=== PATIENT | female | born 1970 | race Caucasian/White ===

== ENCOUNTER → 2019-09-28 | Outpatient (CLI) | payer BC ==
[~2019-09-28] MED LIST: CETI10TA17 PO; DCS100C PO; FLUO10CA19 PO; FRS325T PO; IBP600T1 PO; MNTL10T PO; OXYC-12 PO; SLMFT1E INH
--- NOTE | 2019-09-28 11:51 | Diagnostic Imaging Report ---
INDICATION: Routine screening. COMPARISON is made with prior mammogram 07/03/2018 and 04/28/2016. TECHNIQUE: 2-D and 3-D bilateral screening mammography was performed with CAD. FINDINGS: Both breasts remain heterogeneously dense, limiting the sensitivity of mammography. No mass or malignant appearing microcalcifications are seen. Axillae are unremarkable. IMPRESSION: BI-RADS Category 1 No mammographic features suspicious for malignancy are identified. ACR BI-RADS Category 1: Negative. Result letter will be mailed to the patient. Note: At least 10% of breast cancer is not imaged by mammography. Dictated by: Dictated on workstation # [id number]
== END ==
LOC: RAD 08:13
PROVIDERS: ATTEND Family Medicine
DX: Z12.31 Encounter for screening mammogram for malignant neoplasm of breast (principal)
CPT/HCPCS: 77067

== ENCOUNTER → 2021-02-12 | Outpatient (CLI) | payer BC ==
--- NOTE | 2021-02-12 13:09 | Diagnostic Imaging Report ---
INDICATION: Routine screening. Comparison is made prior mammogram 09/28/2019 and 07/03/2018. 2-D and 3-D bilateral screening mammography was performed with CAD. Both breast are heterogeneously dense, limiting the sensitivity of mammography. The parenchymal pattern is stable. No mass or malignant appearing microcalcifications are seen. Axillae are unremarkable. IMPRESSION: BI-RADS Category 1 No mammographic features suspicious for malignancy are identified. ACR BI-RADS Category 1: Negative. Result letter will be mailed to the patient. Note: At least 10% of breast cancer is not imaged by mammography. Dictated by: Dictated on workstation # [id number]
== END ==
LOC: RAD 07:45
PROVIDERS: ATTEND Family Medicine
DX: Z12.31 Encounter for screening mammogram for malignant neoplasm of breast (principal)
CPT/HCPCS: 77063; 77067

== ENCOUNTER 2022-03-31 06:26 | Outpatient (CLI) | payer BC ==
[~2022-03-31] VITALS: Ht 165.1 cm; Wt 99.3 kg
[2022-03-31] MEDS ORDERED: FLUO20TA28 PO (15:12)
[2022-03-31] MEDS ORDERED: ATOR40TA70 PO (15:12)
[2022-03-31] MEDS ORDERED: CELE-63 PO (15:12)
[2022-03-31] MEDS ORDERED: LISI10TA25 PO (15:12)
[2022-03-31] MEDS ORDERED: BUPR150T24 PO (15:12)
[2022-03-31] MEDS ORDERED: OMEP20TA56 PO (15:12)
[2022-03-31] MEDS ORDERED: SITA25TA5 PO (15:12)
[2022-03-31] MEDS ORDERED: SPIR50TA4 PO (15:12)
[2022-03-31] MEDS ORDERED: NF-VITD400 PO (15:12)
== END 2022-03-31 15:22 | disposition home or self-care (01) ==
LOC: PREOP 06:26
PROVIDERS: ATTEND Internal Medicine
DX: Z01.818 Encounter for other preprocedural examination (principal)

== ENCOUNTER 2022-04-09 08:25 | Day surgery (SDC) | payer BC ==
--- NOTE | 2022-03-31 08:22 | HISTORY AND PHYSICAL ---
DATE OF SERVICE: COLONOSCOPY HISTORY AND PHYSICAL DATE OF ADMISSION: 04/02/2022. HISTORY OF PRESENT ILLNESS: The patient is a 51-year-old white female referred by Dr. Manzano for her first screening colonoscopy. She is deemed to be slightly higher than average risk as there is a family history for colon polyps in her father as well as a sister, who had polyps removed on her first colonoscopy around the age of 50. She is not aware of any family history for GI tract malignancy including colon cancer. She reports no abdominal pain, change in bowel habits, bright red blood per rectum or melena with a stable weight. PAST MEDICAL HISTORY: Significant for hypertension and insulin resistance as well as hyperlipidemia with no known history for coronary artery disease. FAMILY HISTORY: As noted in the HPI. 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 PAST SURGICAL HISTORY: Significant for hysterectomy for benign reasons a little over 10 years ago. REVIEW OF SYSTEMS: CONSTITUTIONAL: Denies night sweats, chills, fever, and change in weight. GASTROINTESTINAL: As noted in the HPI. PULMONARY: Denies cough, wheezing or shortness of breath. CARDIOVASCULAR: Denies orthopnea, PND, pedal edema, syncope or chest pain. PHYSICAL EXAMINATION: GENERAL: Reveals a pleasant white female in no acute distress. VITAL SIGNS: Weight is 219 pounds. Blood pressure is 130/82. HEENT: Unremarkable. Sclerae nonicteric. CHEST: Clear to auscultation. CARDIOVASCULAR: Reveals a regular rate and rhythm without murmur, S3 or S4. ABDOMEN: Soft and supple. There is some mild right lower quadrant discomfort to palpation without rebound or guarding. Bowel sounds are positive. No evidence for abdominal distention. EXTREMITIES: Reveal no cyanosis, clubbing or edema. ASSESSMENT AND PLAN: The patient is being set up for her first screening colonoscopy on March. Prep instructions were given, questions were answered, and her electronic medical record was reviewed. I thank you for the referral of this pleasant lady. Job ID: [id number] DocumentID: [id number] Dictated Date: 03/18/2022 16:59:54 Threat Monitoring Analyst Date: 03/18/2022 17:14:02 Dictated By: DELPHINE CASTRO MD
[~2022-04-09] VITALS: Ht 165 cm; Wt 99.3 kg
[~2022-04-09 08:25] MED LIST changes: +ATOR40TA70 PO; +BUPR150T24 PO; +CELE-63 PO; +FLUO20TA28 PO; +LISI10TA25 PO; +NF-VITD400 PO; +OMEP20TA56 PO; +SITA25TA5 PO; +SPIR50TA4 PO
[2022-04-09] MEDS ORDERED: LACTATED RINGERS 1,000 ML IV ONE ×2 (08:30→11:21)
[2022-04-09] MEDS ORDERED: LACTATED RINGERS 1,000 ML IV STA (08:31)
[2022-04-09 08:40] VITALS: BP 137/94
--- NOTE | 2022-04-09 08:41 | Pre-Op Note & Conscious Sedat ---
Pre-Operative Progress Note H&P Reviewed The H&P was reviewed, patient examined and no changes noted. Date H&P Reviewed: Apr 09, 2022 Time H&P Reviewed: 08:41 Conscious Sedation Pre-Proced ASA Score 2 For ASA 3 and 4: Consider anesthesia and medical clearance. Also, for patients with a history of failed moderate sedation consider anesthesia. Airway Lungs Heart ASA score ASA 1: a normal healthy patient ASA 2: a patient with a mild systemic disease (mid diabetes, controlled hypertension, obesity ASA 3: a patient with a severe systemic disease that limits activity (angina, COPD, prior Myocardial infarction) ASA 4: a patient with an incapacitating disease that is a constant threat to life (CHF, renal failure) ASA 5: a moribund patient not expected to survive 24 hrs. (ruptured aneurysm) ASA 6: a declared brain- patient whose organs are being harvested. For emergent operations, add the letter E after the classification Mallampati Classification Grade 2 Sedation Plan Analgesia, Amnesia, Plan communicated to team members, Discussed options with patient/fam, Discussed risks with patient/fam The patient is an appropriate candidate to undergo the planned procedure, sedation, and anesthesia. The patient immediately re-assessed prior to indication. DELPHINE CASTRO MD Apr 09, 2022 08:41
[2022-04-09] MEDS ORDERED: PROPOFOL INJECTION 50 ML IV ONE (10:07)
[2022-04-09 10:42] VITALS: BP 119/72
[2022-04-09 10:47] VITALS: BP 110/81
[2022-04-09 10:50] VITALS: BP 110/81
[2022-04-09 11:20] VITALS: BP 110/87
--- NOTE | 2022-04-09 12:22 | Anesthesia-General Post-Op ---
MAC Patient Condition Mental Status/LOC: Same as Preop Cardiovascular: Satisfactory Nausea/Vomiting: Absent Respiratory: Satisfactory Pain: Controlled Complications: Absent Post Op Complications Complications None Follow Up Care/Instructions Patient Instructions None needed. Anesthesiology Discharge Order Discharge Order Patient is doing well, no complaints, stable vital signs, no apparent adverse anesthesia problems. No complications reported per nursing. LESLIE SAUNDERS CRNA Apr 09, 2022 12:22
--- NOTE | 2022-04-09 19:15 | OPERATIVE REPORT ---
DATE OF SERVICE: COLONOSCOPY SUMMARY INDICATION FOR THE PROCEDURE: Screening colonoscopy. The patient was placed in the left lateral decubitus position. Prior to undergoing colonoscopy, digital rectal evaluation was performed. Anal sphincter tone was normal. Perianal reflexes intact. No abnormalities were noted on digital inspection of the anal canal or distal rectal vault. The colonoscope was then inserted into the rectum and under direct visualization advanced to the cecum. The cecum was identified by identification of ileocecal valve and cecal strap. Photographic documentation was obtained. Careful inspection was made as colonoscope withdrawn. Quality of prep was good. FINDINGS: Two 3 mm sessile hyperplastic appearing polyps were noted first in the distal rectum and the second in the rectosigmoid junction. Both were biopsied and ablated with hot forceps with no subsequent blood loss. No other rectal abnormalities were appreciated. The sigmoid colon, descending colon, splenic flexure, transverse colon, hepatic flexure, ascending colon and cecum were unremarkable under good prep conditions. ASSESSMENT: Two diminutive hyperplastic appearing polyps were removed, one from the distal rectum and the other from the rectosigmoid junction via hot forceps with no subsequent blood loss. As long as there are no surprises on histopathology, we would advocate consideration for repeat screening colonoscopy in 10 years. I thank you for the referral of this pleasant lady. Job ID: [id number] DocumentID: [id number] Dictated Date: 04/09/2022 10:41:51 Ocean Export Coordinator Date: 04/09/2022 18:15:16 Dictated By: DELPHINE CASTRO MD
== END 2022-04-09 11:25 | disposition home or self-care (01) ==
LOC: ENDO 08:25
PROVIDERS: ATTEND Internal Medicine
DX: Z12.11 Encounter for screening for malignant neoplasm of colon (principal); K63.5 Polyp of colon; K62.1 Rectal polyp; E66.9 Obesity, unspecified; Z68.36 Body mass index [BMI] 36.0-36.9, adult; Z83.71 Family history of colonic polyps
CPT/HCPCS: 82947